=== PATIENT | male | born 1995 | race Caucasian/White ===

== ENCOUNTER 2017-04-26 02:59 | Emergency (ER) | payer OTHER ==
[~2017-04-26] VITALS: Ht 193 cm; Wt 81.6 kg
[2017-04-26 03:13] VITALS: BP 138/95
[2017-04-26 03:40] VITALS: BP 127/72
--- NOTE | 2017-04-26 03:40 | NUR ---
Patient discharged with v/s stable. Written and verbal after care instructions given and explained. Patient verbalized understanding. Police with in custody. All questions addressed prior to discharge. Advised to follow up with PMD.
== END 2017-04-26 03:13 ==
LOC: MED 02:59
DX: Z02.89 Encounter for other administrative examinations (principal)
CPT/HCPCS: 99283